=== PATIENT | male | born 1990 | race Caucasian/White ===

== ENCOUNTER 2021-07-20 10:55 | Emergency (ER) | payer MEDICAID, SELFPAY ==
[2021-07-20 10:55] VITALS: BP 142/79; PULSE 99; RESP 18; TEMP 36.6; O2SAT 97; BMI 25.0
--- NOTE | 2021-07-20 11:26 | EKG12_ITS ---
Test Reason : GENERAL ILLNESS Blood Pressure : / mmHG Vent. Rate : 091 BPM Atrial Rate : 091 BPM P-R Int : 138 ms QRS Dur : 090 ms QT Int : 334 ms P-R-T Axes : 068 064 053 degrees QTc Int : 410 ms Normal sinus rhythm Normal ECG Confirmed by TAN OCASIO, YOGESH ([id number]), department editor EMILIO GUERIN ([id number]) on 07/23/2021 11:13:35 AM Referred By: CAT/MEREDITH Confirmed By:YOGESH MADDOX MD
--- NOTE | 2021-07-20 11:26 | RAD_ITS ---
STUDY: X-RAY CHEST REASON FOR EXAM: Male, 30 years old. 2-3 day history of chest pain. TECHNIQUE: Single AP portable view of the chest. COMPARISON: None. FINDINGS: Hyperinflation. The lungs are clear. There is no demonstrated pleural abnormality. Normal size heart. Normal mediastinum and juma. Normal visualized pulmonary arteries. Normal visualized aortic arch and descending thoracic aorta. Normal visualized thoracic spine. Normal visualized ribs, clavicles, and shoulders. There is no demonstrated abnormality of the visualized soft tissue structures of the upper abdomen. RAD/Chest 1 View (Portable) IMPRESSION: Normal x-ray examination of the chest. Electronically Signed: Cruz Waller MD at 12:26 EST ,
--- NOTE | 2021-07-20 11:28 | EDS_ITS ---
HPI <DONNA Vera - Last Filed: 07/20/21 12:21> History of Present Illness Chief Complaint: General Illness Narrative Narrative: 30-year-old male with no past medical history presents with nasal congestion and chest tightness over the last 2 to 3 days. He states his nasal drainage is causing him to have a sore throat. The left side of his chest intermittently feels tight for 10 seconds. He noticed it at his job at [employer]. He has no shortness of breath, nausea, vomiting, cough, or fever. He is also having a transient bifrontal throbbing headache that occurs with standing or lying down that last 5 to 10 seconds. There are no associated vision changes. No neck pain or fever. No focal motor or sensory changes. He does report a history of migraines. PFSH <DONNA Vera - Last Filed: 07/20/21 12:21> [facility] Home Medications paroxetine HCl 20 mg PO DAILY 09/15/16 [History Last Taken Unknown] ranitidine HCl [Zantac] 300 mg PO DAILY #30 tab 09/23/16 [Rx Last Taken Unknown] Allergy/AdvReac Type Severity Reaction Status Date / Time Penicillins Allergy Hives Verified 07/20/21 10:57 Social History Smoking Status: Current every day smoker tobacco type: e-cigarettes ROS <DONNA Vera Last Filed: 07/20/21 12:21> ROS ED ROS Narrative Constitutional: Negative for fever, chills, malaise. Eyes: Negative for visual change. ENT: Positive for sore throat, rhinorrhea. CVS: Positive for chest pain. Negative for palpitations, syncope. Respiratory: Negative for shortness of breath, cough, orthopnea. GI: Negative for abdominal pain, nausea, vomiting, diarrhea, constipation, melena, hematochezia. : Negative for dysuria, hematuria or frequency. Neuro: Positive for headache, negative for motor/sensory dysfunction. Skin: Negative for rash, abscess, or wound. Musc: Negative for joint pain, swelling, trauma. Heme: Negative for easy bruising, bleeding, lymphadenopathy. EXAM <DONNA Vera Last Filed: 07/20/21 12:21> Physical Exam Narrative Exam Narrative: CONST: Patient sitting in no acute distress. EYES: Normal inspection. PERRLA, EOMI. No proptosis, no photophobia. ENT: Normal inspection, moist mucous membranes, normal oropharynx with midline uvula. Nares clear. NECK: Normal inspection. Supple, full range of motion, trachea midline, no lymphadenopathy or masses. RESP: No respiratory distress, CTAB. CVS: Regular rate and rhythm, no murmur, no gallop. SKIN: Color normal, no rash, warm, dry, intact. EXTREMITIES: Normal appearance, no pedal edema. NEURO: Oriented x4. Normal [id number] and [id number], normal gait. PSYCH: Normal affect. Const Vital Signs: 07/20/21 10:55 07/20/21 11:00 Temperature 97.8 F Temperature Source Temporal Pulse Rate 99 Respiratory Rate 18 Respiratory Effort Normal Non-Labored Respiratory Pattern Normal Blood Pressure 142/79 H Blood Pressure Mean 100 Pulse Ox 97 Oxygen Delivery Method Room Air <Dr. Rubin Clay MD - Last Filed: 07/20/21 11:54> Physical Exam Const Vital Signs: 07/20/21 10:55 07/20/21 11:00 Temperature 97.8 F Temperature Source Temporal Pulse Rate 99 Respiratory Rate 18 Respiratory Effort Normal Non-Labored Respiratory Pattern Normal Blood Pressure 142/79 H Blood Pressure Mean 100 Pulse Ox 97 Oxygen Delivery Method Room Air MDM <DONNA Vera - Last Filed: 07/20/21 12:21> [facility] Narrative Medical decision making narrative: Patient presents with a few day history of nasal congestion and also reports intermittent headaches and chest pain that just last a few seconds. He appears well and nontoxic. Afebrile and vital signs unremarkable. His exam is unremarkable. He has moist mucous membranes with a normal oropharynx. Nares are clear. Neck is supple with no signs of meningismus. Heart is regular. Lungs clear to auscultation. He has a normal neurological exam. He has no lower extremity swelling. He is PERC negative. EKG is normal sinus rhythm with normal intervals and no acute ischemic changes. CXR shows no acute process. At this time the etiology of his chest pain is unknown and he will be provided a PCP referral. He was counseled on signs that would warrant return to the ED and was discharged in stable condition. 1. Chest pain of unknown etiology 2. URI EKG Initial EKG: Attestation: I personally reviewed and interpreted this EKG as follows: Interpretation: Sinus Rhythm and No Acute Injury Pattern <Dr. 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 Very atypical noncardiac sounding chest pain. He is also had recent runny nose. Physical exam is normal. Vital signs are unremarkable. Pulse ox 97% on room air no hypoxia. H EENT exam unremarkable. Neck nontender. No meningismus. Lungs are clear equal symmetrical. Heart regular rate and rhythm no murmur. Abdomen is soft and nontender. He is moving all 4 extremities. Neurologically is awake alert. No focal motor deficits. NIH is 0. Fingertip to nose [id number] all within normal limits. Radiography Chest X-Ray - ED: 1 View, Heart, Lungs, Mediastinum, Bony Structures and No Acute Disease Diagnostic Testing: Chest x-ray, single view, interpreted by myself shows no acute abnormality. Normal cardiac silhouette and mediastinum. No infiltrate. Discharge Plan Triage Chief Complaint: General Illness ED Provider: Gisselle Taylor Dx/Rx/DC Orders Clinical Impression: Chest pain of unknown etiology, URI (upper respiratory infection) Instructions: ED Chest Pain, Uncertain Cause, ED URI, Viral, No Abx (Adult) Prescriptions: No Action paroxetine HCl 20 MG tablet 20 mg PO DAILY RF: 0 ranitidine HCl [Zantac] 300 MG tablet 300 mg PO DAILY Qty: 30 RF: 0 Primary Care Provider: Care Physician,No Primary Referrals: Erick Arriola MD [STAFF PHYSICIAN] - Care Physician,No Primary [Primary Care Provider] - Activity Restrictions/Additional Instructions: Your EKG showed a normal heart rhythm and your chest x-ray appears normal. No evidence of pneumonia. At this time the cause of your chest pain is unknown but we feel you are safe to follow-up with your primary care doctor. Your nasal congestion and headache is likely an upper respiratory infection which should improve with time and symptomatic cold treatment. If you have new or worsening symptoms please come back to the ER. Disposition Disposition: Home, Self Care
[2021-07-20 12:28] VITALS: PULSE 70; RESP 14
== END 2021-07-20 12:30 | disposition home or self-care (01) ==
PROVIDERS: Emergency Provider Physician Assistant; Visit Provider Physician Assistant
DX: J06.9 Acute upper respiratory infection, unspecified (principal); R07.9 Chest pain, unspecified; F17.290 Nicotine dependence, other tobacco product, uncomplicated
CPT/HCPCS: 71045; 93005; 99282